=== PATIENT | male | born 1995 | race Caucasian/White ===

== ENCOUNTER 2024-11-30 09:27 | Outpatient (CLI) | payer OTHER, SELFPAY ==
--- NOTE | ~2024-11-30 | US_ITS ---
Limited Abdominal Sonogram: Real-time sonographic imaging of the right upper quadrant was performed. Clinical History: Abnormal liver enzymes Findings: The liver appears echogenic, with no evidence of mass lesion or bile duct dilatation. Main portal vein demonstrates normal direction of flow. The gallbladder is well distended, and appears no rmal with no evidence of gallstone or wall thickening. The common bile duct measures 3 mm. The visua lized pancreas, aorta, and IVC are unremarkable. Visualized right kidney unremarkable. Impression: Diffuse fatty infiltration of the liver. Reviewed, dictated and finalized at location [facility] [employer] Impression: Diffuse fatty infiltration of the liver.
== END 2024-11-30 09:28 | disposition home or self-care (01) ==
LOC: MICIMG 09:27
PROVIDERS: Visit Provider Internal Medicine
DX: R74.8 Abnormal levels of other serum enzymes (principal)
CPT/HCPCS: 76705

== ENCOUNTER 2025-03-14 08:11 | Outpatient (CLI) | payer OTHER, SELFPAY ==
--- NOTE | 2025-03-15 18:02 | WPDHOMESLEEP ---
Sleep Study - Home Unattended Date of Study: 03/14/25 Ordering Provider: Daniel Barger, Interpreting Provider: Noemy Rai MD Home Sleep Study Type: Watch PAT Height: 1.78 m Weight: 127.006 kg Body Mass Index: 40.1 Neck Circumference (inches): 18 [place]: 13 Reason for Sleep Study Hypersomnolence Sleep History Marilyn Tomlinson is a 29-year-old man with daytime fatigue. He was on ADHD medications in the past but has been off a few years. His sleep is not refreshing and he often wakes up in the middle of the night for unknown reasons. He may fall asleep inappropriately for example in the theater but then he is not able to fall asleep and stay asleep throughout the night. He does not know whether not he snores. No but he tells him that he stops breathing. He does not choke or gasp at night and he does not have difficulty breathing when he is on his back but he does wake with a morning headache and a dry mouth. He does not have nocturnal heartburn. He does not wake at night to urinate. He does not have hypertension, heart disease or atrial fibrillation. When he awakens at night he does have difficulty returning to sleep. He wakes up earlier than he would like to wake. He does sometimes clench his jaws and grind his teeth at night. He does not kick his legs excessively nor does he have a restless feeling in his legs before sleep. He has daytime fatigue and his sleep is never restorative. He does not have the urge to fall asleep during the day and he does not feel drowsy while driving. He is more alert in the evening compared to the morning. He does not act out his dreams. He does not sleep walk. His insomnia severity index is moderately elevated. He has moderate difficulty falling asleep, moderate difficulty staying asleep and moderate difficulty waking up too early in the morning. He is very dissatisfied with his current sleep pattern. His sleep pattern is somewhat interfering with his daily functioning and somewhat impairing the quality of life. He worries about it somewhat, not all the time, but it does concern him. Normal bedtime is 11:00 p.m. falling asleep within 30 minutes, spending 6 hours in bed but only 4 hours asleep. On his days off, bedtime is midnight, falls asleep within 30 minutes, spent 7 hours in bed but only 5 hours of sleep. He does not take planned naps. Habits: Tobacco : 1 pack per week Caffeine : Moderate Alcohol : Moderate Recreational substances : none PMFSH Past Medical History Medical History (Updated 03/16/25 @ 20:51 by Noemy Rai MD) Fatigue Family History Family History (Updated 03/16/25 @ 20:53 by Noemy Rai MD) Father Hyperlipidemia Hypertension Diabetes mellitus Asthma Mother ADHD (attention deficit hyperactivity disorder) Sibling ADHD (attention deficit hyperactivity disorder) Social History Social History (Updated 03/16/25 @ 20:56 by Noemy Rai MD) Smoking packs per day: 0.15 Smoking cigarettes per day: 3.0 Smoking status: Current some day smoker Alcohol intake: current Substance use: never Medications Medications: no regular medications Sleep Procedure The sleep study was completed using [employer] a technically adequate device with seven channels: peripheral arterial tone, actigraphy, body position, snore, respiratory movement, pulse oximetry, sleep staging, and heart rate. Prior to using the device, the patient received verbal and written instructions for its application and was provided with the help desk phone number for additional telephonic instruction with 24-hour availability of qualified personnel to answer questions. Sleep Architecture The total recording time is 4 hrs, 21 min. The total sleep time is 3 hrs, 54 min. Sleep latency is 14 minutes. REM latency is 56 minutes. The patient had 6 episodes of waking. Sleep architecture shows 16.2% deep sleep, 55.2% light sleep, and 28.6% stage REM. The patient spent 44.6% of total sleep time in the supine position. Sleep efficiency was 89%. Respiratory Analysis The overall AHI (pAHI 3%:) is 45.3. The central AHI is 2.6. The AHI was 39.2 in NREM and 60.4 in REM sleep. The AHI was 54.2 in Supine and 38.1 in Non-supine sleep. Percent of Leonardo Rodriguez respirations is 0% Oximetry Data The oxygen desaturation index (SATYA 4%:) is 30.9. The mean saturation is 94%, and the lowest saturation is 82%. Time spent with saturation < 88% is 3.9 minutes. Snoring Profile Snoring average intensity is 53 dB. The patient snored above 45 decibels for 183.8 minutes, 78.4% of sleep time. Cardiac Profile The average pulse rate is 67 beats per minutes. The lowest pulse rate is 47 bpm. The highest pulse rate is 102 bpm. Cardiac Rhythm Analysis in Sleep did not detect atrial fibrillation. Assessment and Plan Assessment and Plan (1) Obstructive sleep apnea: Code(s): G47.33 - Obstructive sleep apnea (adult) (pediatric) Status: Acute Assessment and Plan: This home sleep test using WatchPat on 03/14/2025 shows severe obstructive sleep apnea, the apnea hypopnea index is 45.3 with desaturation to 82% and 3.9 minutes spent below 88%. He snored above 45 decibels for 78% of sleep time. Given the severity of these findings, this patient would benefit from a CPAP titration in the sleep lab. He should have a sleep aid such as Ambien 5 mg to 10 mg or Lunesta 2 mg to 3 mg to get to sleep and stay asleep, if needed. He should not take this sleep aid until he arrives at the sleep lab and is ready for to fall asleep. Sometimes sleeping in a new environment can be challenging. He should be reminded not to drive until excessive daytime sleepiness has been treated. BMI is 40.2. Weight management is advised. Clinical data suggests that weight loss of 10% can reduce the severity of respiratory events and snoring and improve AHI by as much as 25%. Data The data obtained during this sleep study is adequate for interpretation. Certification This sleep study has been reviewed by a board certified sleep medicine physician.
[2025-03-16 21:01] VITALS: BMI 40.1
== END 2025-03-15 14:18 | disposition home or self-care (01) ==
LOC: ANHCSM 08:13
PROVIDERS: PCP Internal Medicine; Visit Provider Internal Medicine
DX: G47.9 Sleep disorder, unspecified (principal); G47.33 Obstructive sleep apnea (adult) (pediatric)
CPT/HCPCS: 95800

== ENCOUNTER 2025-03-30 08:25 | Outpatient (CLI) | payer OTHER, SELFPAY ==
--- NOTE | 2025-04-26 05:26 | WPDSLEEPSTUD ---
Sleep Study Date of Study: 03/30/25 Ordering Provider: Daniel Barger, Interpreting Physician: Noemy Rai MD Sleep Study Type: CPAP Titration Height: 1.78 m Weight: 127.006 kg Body Mass Index: 40.1 Neck Circumference (inches): 18 [place]: 13 Reason for Sleep Study Hypersomnolence, (+) HST, patient returns for CPAP titration * 03/14/2025 home sleep test using WatchPat with severe obstructive sleep apnea, AHI 45., desaturation to 82% and 3.9 minutes spent below 88%. Sleep History This history is taken from his 03/14/2025 sleep questionnaire. Marilyn Tomlinson is a 29-year-old man with daytime fatigue. He was on ADHD medications in the past but has been off a few years. His sleep is not refreshing and he often wakes up in the middle of the night for unknown reasons. He may fall asleep inappropriately for example in the theater but then he is not able to fall asleep and stay asleep throughout the night. He does not know whether not he snores. No but he tells him that he stops breathing. He does not choke or gasp at night and he does not have difficulty breathing when he is on his back but he does wake with a morning headache and a dry mouth. He does not have nocturnal heartburn. He does not wake at night to urinate. He does not have hypertension, heart disease or atrial fibrillation. When he awakens at night he does have difficulty returning to sleep. He wakes up earlier than he would like to wake. He does sometimes clench his jaws and grind his teeth at night. He does not kick his legs excessively nor does he have a restless feeling in his legs before sleep. He has daytime fatigue and his sleep is never restorative. He does not have the urge to fall asleep during the day and he does not feel drowsy while driving. He is more alert in the evening compared to the morning. He does not act out his dreams. He does not sleep walk. His insomnia severity index is moderately elevated. He has moderate difficulty falling asleep, moderate difficulty staying asleep and moderate difficulty waking up too early in the morning. He is very dissatisfied with his current sleep pattern. His sleep pattern is somewhat interfering with his daily functioning and somewhat impairing the quality of life. He worries about it somewhat, not all the time, but it does concern him. Normal bedtime is 11:00 p.m. falling asleep within 30 minutes, spending 6 hours in bed but only 4 hours asleep. On his days off, bedtime is midnight, falls asleep within 30 minutes, spent 7 hours in bed but only 5 hours of sleep. He does not take planned naps. Habits: Tobacco : 1 pack per week Caffeine : Moderate Alcohol : Moderate Recreational substances : none PMFSH Past Medical History Medical History (Updated 04/26/25 @ 05:30 by Noemy Rai MD) Obstructive sleep apnea Fatigue Family History Family History (Updated 03/16/25 @ 20:53 by Noemy Rai MD) Father Hyperlipidemia Hypertension Diabetes mellitus Asthma Mother ADHD (attention deficit hyperactivity disorder) Sibling ADHD (attention deficit hyperactivity disorder) Social History Social History (Updated 03/16/25 @ 20:56 by Noemy Rai MD) Smoking packs per day: 0.15 Smoking cigarettes per day: 3.0 Smoking status: Current some day smoker Alcohol intake: current Substance use: never Medications Medications: none listed Sleep Procedure A full CPAP polysomnogram using the [email or web address] multi-channel system recorded the standard physiologic parameters including EEG, EOG, submentalis EMG, anterior tibialis EMG, EKG, body position, nasal and oral airflow using nasal pressure sensor and thermistor. Respiratory parameters of chest and abdominal movements were recorded with Respiratory Inductance Plethysmography belts. Oxygen saturation was recorded by pulse oximetry. Video monitoring was also performed. Sleep stages, periodic limb movements, and EEG arousals were scored in 30 second epochs according to the criteria of the AASM Scoring Manual. The Apnea-Hypopnea Index was calculated using CMS guidelines for definition of hypopnea while scoring respiratory events. The patient was started on CPAP using a medium ResMed AirTouch N30i nasal mask with heated humidity, was titrated from CPAP 5 cm, 7 cm, 9 cm, 11 cm and 12 cm. At CPAP 12 cm, he spent 54 minutes in bed, 11 minutes awake, 41.5 minutes in NREN, 1.5 minutes in REM. The sleep efficiency was 79.6%. The lowest saturation was 96% The residual AHI was 0, and a small amount of REM in the left lateral position occurred. Another acceptable pressure was CPAP 11 cm, residual AHI was 3.1 with long episode of REM in the supine position. Sleep Architecture The total recording time was 474.6 minutes. The total sleep time was 402.5 minutes. Sleep latency was 14.5 minutes. REM latency was 83.5 minutes. Sleep efficiency was 84.8%. The patient had 22 awakenings for an awakening index of 3.3. Wake after Sleep Onset time was 57.5 minutes. _[id number] patient spent 32.5 minutes, 8.1% of total sleep time in Stage N1. The patient spent 214.0 minutes, 53.2% in Stage N2. The patient spent 5.5 minutes, 1.4% in Stage N3. The patient spent 150.5 minutes, 37.4% in Stage REM. Respiratory Analysis The patient had 24 hypopneas, 1 obstructive apnea, 1 mixed apnea, and 1 central apnea for an overall Apnea Hypopnea Index of 4.0 events per hour. The REM Apnea Hypopnea Index was 8.4. The NREM Apnea Hypopnea Index was 1.4. The patient had a Central Apnea Hypopnea Index of 0.1. There were no Respiratory Effort Related Arousals. The Respiratory Disturbance Index is 4.5 events per hour. There was no evidence of Leonardo-Rodriguez Respirations. Arousals There were 51 total arousals for an arousal index of 7.6. There were 40 spontaneous arousals for an index of 6.0. There were 9 arousals due to respiratory events for an index of 1.3. There were no arousals due to periodic limb movements. There were 2 arousals due to isolated limb movements for an index of 0.3. Periodic Limb Movements The patient had 29 isolated limb movements with an index of 4.3. The patient had 10 periodic limb movements with index of 1.5. Patient had a total of 39 limb movements with a total limb movement index of 5.8. Oximetry Data The patient had an average oxygen saturation of 96.3% in sleep with a minimum oxygen saturation of 89% and a maximum oxygen saturation of 99%. The patient had 25 oxygen desaturations that were 4% or greater resulting in an Oxygen Desaturation Index of 3.7. The patient spent no sleep time with an oxygen saturation below 88%. Snoring Profile Snoring was eliminated during the titration. Cardiac Profile The EKG showed normal sinus rhythm. The patient had an average pulse rate of 56 bpm with a minimum pulse rate of 42 bpm and a maximum pulse rate of 82 bpm. No arrhythmias noted. EEG Profile EEG was unremarkable, no evidence of seizures. Assessment and Plan Assessment and Plan (1) Obstructive sleep apnea: Code(s): G47.33 - Obstructive sleep apnea (adult) (pediatric) Status: Acute Assessment and Plan: This full night CPAP titration shows an excellent response to CPAP 12 cm using a medium ResMed AirTouch N30i nasal mask and heated humidity. At CPAP 12 cm, he spent 54 minutes in bed, 11 minutes awake, 41.5 minutes in NREN, 1.5 minutes in REM. The sleep efficiency was 79.6%. The lowest saturation was 96% The residual AHI was 0, and a small amount of REM in the left lateral position occurred. Another acceptable pressure was CPAP 11 cm, residual AHI was 3.1 with long episode of REM in the supine position. I recommend treating with CPAP 12 cm, and follow up for compliance. The patient should be prescribed this ResMed equipment as well as tubing, filters and reservoir. This should be used with all episodes of sleep. Compliance should be reviewed within 31-90 days of starting therapy for usage greater than 4 hours per night greater than 70% of the nights. The patient should be asked about symptoms such as excessive daytime sleepiness, quality of sleep, decreased nocturia, increased mental functioning such as memory, mood, and concentration. BMI is 40.2. Weight management is advised. Clinical data suggests that weight loss of 10% can reduce the severity of respiratory events and snoring and improve AHI by as much as 25%. Data The data obtained during this sleep study is adequate for interpretation. Certification This sleep study has been reviewed by a board certified sleep medicine physician.
[2025-04-26 05:49] VITALS: BMI 40.1
== END 2025-03-31 06:55 | disposition home or self-care (01) ==
PROVIDERS: PCP Internal Medicine; Visit Provider Internal Medicine
DX: G47.33 Obstructive sleep apnea (adult) (pediatric) (principal)
CPT/HCPCS: 95811